=== PATIENT | female | born 1990 ===

== ENCOUNTER 2021-09-01 13:05 | Emergency (ER) | payer SELFPAY ==
[~2021-09-01] VITALS: Ht 149.8 cm; Wt 54.4 kg
[2021-09-01] MEDS ORDERED: IOHEXOL 350 MG/ML 100 ML (OMNIPAQUE 350) VIAL IV ONE (13:45)
[2021-09-01] MEDS ORDERED: NS 100 ML (IVPB) BAG IV ONE (13:45)
[2021-09-01] MEDS ORDERED: NS IV 1000 ML 1,000 ML IV SCH (13:45)
--- NOTE | 2021-09-01 13:53 | ED General ---
General Chief Complaint: General Problems/Pain Stated Complaint: NECK PAIN Source of Information: Patient Exam Limitations: Language Barrier History of Present Illness Date Seen by Provider: Sep 01, 2021 Time Seen by Provider: 13:22 Initial Comments Patient is a 30-year-old female who presents to the emergency room with a chief complaint of left-sided neck pain and swelling. Onset over the course of the last couple of days. No measured fever at home. She denies any problems with swallowing or breathing. She denies dental pain, earache or sore throat. No sick contacts at home, she has not 8-year-old and an 11-year-old who are both healthy. She is not coughing or short of breath. No issues with bowel or bladder. She does have a mild rash to her lower abdomen and on her upper legs that has developed over the last couple of days as well. She has never had anything like this before. Nothing has made it any better or any worse. She did take 2 Advil prior to coming into the emergency department today. She takes no daily medications. She is a non-smoker. All other review of systems reviewed and negative except as stated. Timing/Duration: 1-2 Days Severity: Moderate Associated Systoms: Other (swelling and rash) Allergies and Home Medications Allergies Coded Allergies: No Known Drug Allergies (Unverified , 09/01/21) Patient Home Medication List Home Medication List Reviewed: Yes Clindamycin HCl (Clindamycin HCl) 300 Mg Capsule, 300 MG PO Q6H Prescribed by: GÉNESIS GANDHI on 09/01/21 1516 Ondansetron (Ondansetron Odt) 4 Mg Tab.rapdis, 4 MG PO Q8H PRN for nausea Prescribed by: GÉNESIS GANDHI on 09/01/21 1516 Review of Systems Review of Systems Constitutional: see HPI EENTM: other (swelling left neck) Respiratory: no symptoms reported Cardiovascular: no symptoms reported Gastrointestinal: no symptoms reported Genitourinary: no symptoms reported Musculoskeletal: no symptoms reported Skin: rash All Other Systems Reviewed Negative Unless Noted: Yes Physical Exam Vital Signs Vital Signs - First Documented 09/01/21 13:13 Temp 36.6 Pulse 113 Resp 17 B/P (MAP) 110/55 (73) O2 Delivery Room Air Capillary Refill : Height, Weight, BMI Height: '" Weight: lbs. oz. kg; BMI Method: General Appearance: No Apparent Distress, WD/WN Eyes: Bilateral Eye Normal Inspection, Bilateral Eye PERRL, Bilateral Eye EOMI HEENT: PERRL/EOMI, TMs Normal, Normal ENT Inspection, Pharynx Normal, Moist Mucous Membranes, Other (No swelling under the tongue/floor the mouth) Neck: Lymphadenopathy (L), Other (Patient has significant edema from the angle of the mandible inferiorly down the sternocleidomastoid on the left, under the chin and into the upper neck. No crepitance. No discrete skin lesions. She has no intraoral rash or lesion. No percussive tenderness to any of her teeth. No pain along the left mandible. No occipital nodes. No supraclavicular nodes on the left. The entire area is tender to palpation.) Respiratory: Lungs Clear, Normal Breath Sounds, No Accessory Muscle Use, No Respiratory Distress Cardiovascular: Regular Rate, Rhythm, Normal Peripheral Pulses Gastrointestinal: Non Tender, Soft Extremity: Normal Capillary Refill, Normal Inspection, Normal Range of Motion, Non Tender, No Calf Tenderness, No Pedal Edema Neurologic/Psychiatric: Alert, Oriented x3, No Motor/Sensory Deficits, Normal Mood/Affect, wire brusher II-XII Norm as Tested Skin: Normal Color, Warm/Dry, Other (Patient has patchy erythematous macular rash to the right lower abdomen) Progress/Results/Core Measures Suspected Sepsis SIRS Temperature: Pulse: Respiratory Rate: Laboratory Tests 09/01/21 13:37: White Blood Count 11.8H Blood Pressure / Mean: Laboratory Tests 09/01/21 13:37: Creatinine 0.70, Platelet Count 244 Results/Orders Lab Results Laboratory Tests Test 09/01/21 13:37 Range/Units White Blood Count 11.8 H 4.3-11.0 10^3/uL Red Blood Count 4.56 3.80-5.11 10^6/uL Hemoglobin 13.4 11.5-16.0 g/dL Hematocrit 41 35-52 % Mean Corpuscular Volume 89 80-99 fL Mean Corpuscular Hemoglobin 29 25-34 pg Mean Corpuscular Hemoglobin Concent 33 32-36 g/dL Red Cell Distribution Width 13.4 10.0-14.5 % Platelet Count 244 130-400 10^3/uL Mean Platelet Volume 10.9 9.0-12.2 fL Immature Granulocyte % (Auto) 0 % Neutrophils (%) (Auto) 74 42-75 % Lymphocytes (%) (Auto) 16 12-44 % Monocytes (%) (Auto) 4 0-12 % Eosinophils (%) (Auto) 6 0-10 % Basophils (%) (Auto) 0 0-10 % Neutrophils # (Auto) 8.7 H 1.8-7.8 10^3/uL Lymphocytes # (Auto) 1.8 1.0-4.0 10^3/uL Monocytes # (Auto) 0.5 0.0-1.0 10^3/uL Eosinophils # (Auto) 0.7 H 0.0-0.3 10^3/uL Basophils # (Auto) 0.0 0.0-0.1 10^3/uL Immature Granulocyte # (Auto) 0.1 0.0-0.1 10^3/uL Sodium Level 139 135-145 MMOL/L Potassium Level 3.4 L 3.6-5.0 MMOL/L Chloride Level 103 98-107 MMOL/L Carbon Dioxide Level 25 21-32 MMOL/L Anion Gap 11 5-14 MMOL/L Blood Urea Nitrogen 8 7-18 MG/DL Creatinine 0.70 0.60-1.30 MG/DL Estimat Glomerular Filtration Rate 119 BUN/Creatinine Ratio 11 Glucose Level 149 H 70-105 MG/DL Calcium Level 8.7 8.5-10.1 MG/DL C-Reactive Protein High Sensitivity 5.22 H 0.00-0.50 MG/DL My Orders Orders - GÉNESIS GANDHI MD Ed Iv/Invasive Line Start (09/01/21 13:34) Cbc With Automated Diff (09/01/21 13:34) Basic Metabolic Panel (09/01/21 13:34) Hs C Reactive Protein (09/01/21 13:34) Ct Neck (Soft Tissue) W (09/01/21 13:34) Ns Iv 1000 Ml (Sodium Chloride 0.9%) (09/01/21 13:45) Iohexol Injection (Omnipaque 350 Mg/Ml 1 (09/01/21 13:45) Ns (Ivpb) (Sodium Chloride 0.9% Ivpb Bag (09/01/21 13:45) Dexamethasone Injection (Decadron Injec (09/01/21 15:00) Clindamycin 600 Mg/50 Ml Ivpb (Cleocin P (09/01/21 15:00) Medications Given in ED Current Medications Medications Dose Ordered Sig/Adonis Route Start Time Stop Time Status Last Admin Dose Admin Clindamycin Phosphate/Dextrose 50 ml @ 100 mls/hr ONCE ONCE IV 09/01/21 15:00 09/01/21 15:29 09/01/21 15:00 100 MLS/HR Dexamethasone Sodium Phosphate 8 mg ONCE ONCE IV 09/01/21 15:00 09/01/21 15:01 DC 09/01/21 15:00 8 MG Iohexol 100 ml ONCE ONCE IV 09/01/21 13:45 09/01/21 13:46 DC 09/01/21 14:21 60 ML Sodium Chloride 100 ml ONCE ONCE IV 09/01/21 13:45 09/01/21 13:46 DC 09/01/21 14:21 80 ML Vital Signs/I&O 09/01/21 13:13 Temp 36.6 Pulse 113 Resp 17 B/P (MAP) 110/55 (73) O2 Delivery Room Air Capillary Refill : Progress Note : Time: 15:12 Progress Note Patient is resting comfortably, vital signs are stable. No findings noted on CT soft tissue neck with IV contrast concerning for abscess/phlegmon. No airway involvement. Use of the video hand straightener line to facilitate communication of findings and plan of care. Patient verbalizes understanding and agreement with the plan of care. We will send prescriptions for antibiotics to [facility] pharmacy along with some nausea medication. All questions are sought and answered. Diagnostic Imaging Diagonstic Imaging: CT Comments [facility], [place] NAME: [facility] REC#: [id number] PT STATUS: REG ER : 1990 PHYSICIAN: GÉNESIS GANDHI MD ADMIT DATE: 09/01/21/ER Draft Date of Exam:09/01/21 CT NECK (SOFT TISSUE) W PROCEDURE: CT neck soft tissue with contrast. TECHNIQUE: Multiple contiguous axial images were obtained through the neck after the administration of contrast. Auto Exposure Controls were utilized during the CT exam to meet ALARA standards for radiation dose reduction. INDICATION: Left neck and submental swelling. No priors. There is some subcutaneous edema and skin thickening compatible with regional cellulitis in the left neck superficial to as well as deep to the left platysma muscle which is thickened. The edema and inflammatory changes extend deep peripheral and posterior to the intrinsically normal-appearing submandibular gland as well as extended the midline at the submental fat. No radiopaque ductal calculus disease. The parotid glands themselves appeared symmetric and iso-enhanced. The thyroid was normal. The submental subcutaneous edema extends caudally through the anterior neck ventral to the intact parotid as well as caudally to the level of the suprasternal notch. No soft tissue gas. No defined or drainable fluid collection. No abnormal enhancement. No abscess. No gas. The prevertebral and retropharyngeal spaces unremarkable. The free edge of the epiglottis, the aryepiglottic folds, the vocal folds, and the infra laryngeal trachea all widely patent. The visualized pulmonary apices and visualized superior mediastinum unremarkable. Mandible and maxilla appeared intact. No suspicious periapical dental lucencies. Paranasal sinuses and orbits all appeared normal. There is no mastoid effusion. The middle ear cavities normal. External Auditory Canals normal. Carotid and jugular vascularity showed normal enhancement. There are some scattered left greater than right carotid chain cervical lymph nodes hyperenhancing and believed reactive. No suspicious soft tissue mass. IMPRESSION: Superficial and parapharyngeal edema without rim enhancement, defined wall or santos abscess. No gas or foreign body. Process has epicenter posterior to the anterior displacement intrinsically. Normal left submandibular gland. There is some reactive cervical lymphadenopathy, mild. No suspicious mass. Mucosal spaces of the neck showed no involvement. There was no airway embarrassment. No foreign body or gas. No appreciable periapical dental disease. Clear sinuses. Normal orbits. Visualized intracranial contents normal. No sialoliths or salivary ductal dilatation. Dictated on workstation # [id number] Dict: 09/01/21 1423 Trans: 09/01/21 1436 [facility] [id number] Interpreted by: SALINA HONG Electronically signed by: Cody Impression Primary Impression: Lymphadenitis, acute Disposition: 01 HOME, SELF-CARE Condition: Stable Departure-Patient Inst. Decision time for Depature: 15:13 Referrals: [facility] (PCP/Family) Primary Care Physician Patient Instructions: Lymphadenitis (DC) Add. Discharge Instructions: you have an infection in the lymph nodes in your neck on the left side. this requires antibiotics to treat. you will need to take antibiotics 4 times a day for 10 days. ask the pharmacist about a good PROBIOTIC at the pharmacy, to take while you are on antibiotics. i have prescribed some nausea medications as well if you need them with the antibiotic. drink lots of fluids to stay well hydrated. you can take ibuprofen (or ADVIL) 3 pills (600mg) every 6-8 hours for pain - always take this medication with food. Come back to the emergency room for a re-evaluation if you have worsening swelling that causes problems with swallowing or breathing or with high fever. follow up with your primary care physician next with or with [facility]. tiene ruddy infeccin en los ganglios linfticos del shayy del lado luh. esto requiere antibiticos para tratar. tendr que janeen antibiticos 4 veces al da evan 10 garcia. pregntele al farmacutico sobre un buen PROBITICO en la farmacia, para janeen mientras est tomando antibiticos. [place]es del rio he recetado algunos medicamentos para las nuseas si los necesita con el antibitico. romeo muchos lquidos para mantenerse kashif hidratado. puede janeen ibuprofeno (o ADVIL) 3 pastillas (600 mg) cada 6-8 horas para el dolor - siempre tome asif medicamento con alimentos. Regrese a la alaina de emergencias para ruddy reevaluacin si tiene un empeoramiento de la hinchazn que causa problemas para tragar o respirar o con fiebre yuni. rui un seguimiento con rosenbaum mdico de atencin primaria junto con o con la clnica de roland comunitaria. Scripts Ondansetron (Ondansetron Odt) 4 Mg Tab.rapdis 4 MG PO Q8H PRN for nausea, #20 TAB Prov: GÉNESIS GANDHI MD 09/01/21 Clindamycin HCl (Clindamycin HCl) 300 Mg Capsule 300 MG PO Q6H, #40 CAP Prov: GÉNESIS GANDHI MD 09/01/21 Copy Copies To 1: AUSTIN ONEAL KATHRYN M MD Sep 01, 2021 13:53
[2021-09-01 13:58] LABS: POTASSIUM 3.4 MMOL/L (3.6-5.0)
[2021-09-01 14:00] LABS: BASOPHILS % (AUTO) 0 % (0-10); CALCIUM 8.7 MG/DL (8.5-10.1); EOSINOPHILS # (AUTO) 0.7 10^3/uL (0.0-0.3); EOSINOPHILS % (AUTO) 6 % (0-10); HEMATOCRIT 41 % (35-52); HEMOGLOBIN 13.4 g/dL (11.5-16.0); LYMPHOCYTES # (AUTO) 1.8 10^3/uL (1.0-4.0); LYMPHOCYTES % (AUTO) 16 % (12-44); MEAN CORPUSCULAR HEMOGLOBIN 29 pg (25-34); MEAN CORPUSCULAR HGB CONC 33 g/dL (32-36); MEAN CORPUSCULAR VOLUME 89 fL (80-99); MEAN PLATELET VOLUME 10.9 fL (9.0-12.2); MONOCYTES # (AUTO) 0.5 10^3/uL (0.0-1.0); MONOCYTES % (AUTO) 4 % (0-12); NEUTROPHILS # (AUTO) 8.7 10^3/uL (1.8-7.8); NEUTROPHILS % (AUTO) 74 % (42-75); PLATELET COUNT 244 10^3/uL (130-400); WHITE BLOOD COUNT 11.8 10^3/uL (4.3-11.0)
[2021-09-01 14:04] LABS: CREATININE SERUM 0.7 MG/DL (0.60-1.30)
--- NOTE | 2021-09-01 14:37 | Diagnostic Imaging Report ---
PROCEDURE: CT neck soft tissue with contrast. TECHNIQUE: Multiple contiguous axial images were obtained through the neck after the administration of contrast. Auto Exposure Controls were utilized during the CT exam to meet ALARA standards for radiation dose reduction. INDICATION: Left neck and submental swelling. No priors. There is some subcutaneous edema and skin thickening compatible with regional cellulitis in the left neck superficial to as well as deep to the left platysma muscle which is thickened. The edema and inflammatory changes extend deep peripheral and posterior to the intrinsically normal-appearing submandibular gland as well as extended the midline at the submental fat. No radiopaque ductal calculus disease. The parotid glands themselves appeared symmetric and iso-enhanced. The thyroid was normal. The submental subcutaneous edema extends caudally through the anterior neck ventral to the intact parotid as well as caudally to the level of the suprasternal notch. No soft tissue gas. No defined or drainable fluid collection. No abnormal enhancement. No abscess. No gas. The prevertebral and retropharyngeal spaces unremarkable. The free edge of the epiglottis, the aryepiglottic folds, the vocal folds, and the infra laryngeal trachea all widely patent. The visualized pulmonary apices and visualized superior mediastinum unremarkable. Mandible and maxilla appeared intact. No suspicious periapical dental lucencies. Paranasal sinuses and orbits all appeared normal. There is no mastoid effusion. The middle ear cavities normal. External Auditory Canals normal. Carotid and jugular vascularity showed normal enhancement. There are some scattered left greater than right carotid chain cervical lymph nodes hyperenhancing and believed reactive. No suspicious soft tissue mass. IMPRESSION: Superficial and parapharyngeal edema without rim enhancement, defined wall or santos abscess. No gas or foreign body. Process has epicenter posterior to the anterior displacement intrinsically. Normal left submandibular gland. There is some reactive cervical lymphadenopathy, mild. No suspicious mass. Mucosal spaces of the neck showed no involvement. There was no airway embarrassment. No foreign body or gas. No appreciable periapical dental disease. Clear sinuses. Normal orbits. Visualized intracranial contents normal. No sialoliths or salivary ductal dilatation. Dictated by: Dictated on workstation # [id number]
[2021-09-01] MEDS ORDERED: CLINDAMYCIN 600 MG/50 ML IVPB 50 ML IV ONE (15:00)
[2021-09-01] MEDS ORDERED: CLIN-144 PO (15:16)
[2021-09-01] MEDS ORDERED: ONDA4TAB11 PO (15:16)
[2021-09-01 15:38] VITALS: BP 127/68
== END 2021-09-01 15:38 | disposition home or self-care (01) ==
LOC: ER 13:08
DX: L04.0 Acute lymphadenitis of face, head and neck (principal); L53.9 Erythematous condition, unspecified
CPT/HCPCS: 36415; 70491; 80048; 85025; 86141